=== PATIENT | male | born 1945 | race Caucasian/White ===

== ENCOUNTER 2019-04-16 18:16 | Emergency (ER) | payer OTHER ==
[2019-04-16 19:02] LABS: BASOPHILS % (AUTO) 1.4 % (0.0-5.0); EOSINOPHILS % (AUTO) 1.5 % (0.0-8.0); HEMATOCRIT 37.9 % (42-54); LYMPHOCYTES % (AUTO) 25.9 % (21.0-51.0); MEAN CORPUSCULAR HEMOGLOBIN 29.8 pg (27.0-33.0); MEAN CORPUSCULAR VOLUME 87.5 fL (79-99); MONOCYTES % (AUTO) 7.5 % (3.0-13.0); NEUTROPHILS % (AUTO) 63.7 % (40.0-77.0); PLATELET COUNT (AUTO) 297 K/uL (130-400); RED BLOOD CELL COUNT(AUTO) 4.33 MIL/uL (4.50-6.20); WHITE BLOOD COUNT (AUTO) 8.5 K/uL (4.8-10.8)
[2019-04-16 19:15] LABS: POTASSIUM 3.2 mmol/L (3.5-5.1)
[2019-04-16 19:35] LABS: B-TYPE NATRIURETIC PEPTIDE 171 pg/mL (0-100)
[2019-04-16] MEDS ORDERED: FUROSEMIDE 10 MG/ML 4ML VIAL ONE (20:17)
[2019-04-16] MEDS ORDERED: CEFTRIAXONE SODIUM 1 GM ONE (20:17)
[2019-04-16] MEDS ORDERED: SODIUM CHLORIDE 0.9% 100 ML IV ONE (20:18)
== END 2019-04-16 21:04 | disposition home or self-care (01) ==
LOC: EDH 18:16
DX: L03.116 Cellulitis of left lower limb (principal); I10 Essential (primary) hypertension; E78.00 Pure hypercholesterolemia, unspecified; K21.9 Gastro-esophageal reflux disease without esophagitis; F41.9 Anxiety disorder, unspecified; G30.9 Alzheimer's disease, unspecified; F02.80 Dementia in other diseases classified elsewhere, unspecified severity, without behavioral disturbance, psychotic disturbance, mood disturbance, and anxiety; F43.10 Post-traumatic stress disorder, unspecified
CPT/HCPCS: 36415; 80048; 83880; 85025; 93005; 93971; 96374; 96375; 99285; J0696; J1940